=== PATIENT | male | born 1970 | race Caucasian/White ===

== ENCOUNTER 2020-10-26 12:30 | Emergency (ER) | payer OTHER ==
[~2020-10-26] VITALS: Ht 177.8 cm; Wt 102.4 kg
[2020-10-26 13:57] LABS: BASO # 0.1 x10^3/uL (0.0-0.2); BASO % 1 % (0-3); EOS # 0.1 x10^3/uL (0.0-0.7); EOS % 1 % (0-3); HEMATOCRIT 53.8 % (39.0-53.0); HEMOGLOBIN 18.3 g/dL (13.0-17.5); LYMPH # 2.4 x10^3/uL (1.0-4.8); LYMPH % 22 % (24-48); MEAN CORPUSCULAR HEMOGLOBIN 29 pg (25-35); MEAN CORPUSCULAR HGB CONC 34 g/dL (31-37); MEAN CORPUSCULAR VOLUME 85 fL (79-100); MONO # 0.7 x10^3/uL (0.0-1.1); MONO % 6 % (0-9); NEUT # 7.7 x10^3/uL (1.8-7.7); NEUT % 70 % (31-73); PLATELET COUNT 280 x10^3/uL (140-400); RED BLOOD COUNT 6.36 x10^6/uL (4.30-5.70); RED CELL DISTRIBUTION WIDTH 13.7 % (11.5-14.5); WHITE BLOOD COUNT 11.1 x10^3/uL (4.0-11.0)
[2020-10-26 14:10] LABS: CALCIUM 8.7 mg/dL (8.5-10.1); CREATININE 1.2 mg/dL (0.7-1.3); GFR 63.6; POTASSIUM 4.1 mmol/L (3.5-5.1)
[2020-10-26 14:14] VITALS: BP 160/110
[2020-10-26 14:16] LABS: ALBUMIN 3.4 g/dL (3.4-5.0); ALBUMIN/GLOBULIN RATIO 1.1 (1.0-1.7); MAGNESIUM 1.9 mg/dL (1.8-2.4); TOTAL BILIRUBIN 0.5 mg/dL (0.2-1.0); TOTAL PROTEIN 6.4 g/dL (6.4-8.2)
--- NOTE | 2020-10-26 14:44 | PHYS DOC ---
General Adult EDM: Chief Complaint: SHORTNESS OF BREATH HPI: HPI: Patient is a 50 year old male who was told to come to ER for evaluation of abnormal chest x-ray today. Patient said he has been having trouble breathing with exertion for the last 2 weeks. He denies any chest pain, no cough , no fever. Patient denies any abdominal pain, no headache, no neck pain. Patient is a history of diabetic hypertension, he was on medication for that few years back, did not like the medication so he stopped taking the medication, he has been doing diet and exercise to improve the diabetic condition and blood pressure. Patient went to see head doctor today who had ordered a chest x-ray. He had a chest x-ray done today and his doctor told him to come to ER for evaluation. Review of Systems: Review of Systems: Constitutional: Denies fever or chills. [] Eyes: Denies change in visual acuity. [] HENT: Denies nasal congestion or sore throat. [] Respiratory: Denies cough , positive for shortness of air with exertion. Cardiovascular: Denies chest pain or edema. [] GI: Denies abdominal pain, nausea, vomiting, bloody stools or diarrhea. [] : Denies dysuria. [] Musculoskeletal: Denies back pain or joint pain. [] Integument: Denies rash. [] Neurologic: Denies headache, focal weakness or sensory changes. [] Endocrine: Denies polyuria or polydipsia. [] Lymphatic: Denies swollen glands. [] Psychiatric: Denies depression or anxiety. [] Heart Score: C/O Chest Pain: N/A Risk Factors: Risk Factors: DM, Current or recent (<one month) smoker, HTN, HLP, family history of CAD, obesity. Risk Scores: Score 0 - 3: 2.5% MACE over next 6 weeks - Discharge Home Score 4 - 6: 20.3% MACE over next 6 weeks - Admit for Clinical Observation Score 7 - 10: 72.7% MACE over next 6 weeks - Early Invasive Strategies Allergies: Allergies: Allergies Coded Allergies Type Severity Reaction Last Updated Verified No Known Drug Allergies 10/26/20 No Physical Exam: PE: Constitutional: Well developed, well nourished, no acute distress, non-toxic appearance. [] HENT: Normocephalic, atraumatic, bilateral external ears normal, oropharynx moist, no oral exudates, nose normal. [] Eyes: PERRLA, EOMI, conjunctiva normal, no discharge. [] Neck: Normal range of motion, no tenderness, supple, no stridor. [] Cardiovascular:Heart rate regular rhythm, no murmur [] Lungs & Thorax: Bilateral breath sounds clear to auscultation [] Abdomen: Bowel sounds normal, soft, no tenderness, no masses, no pulsatile masses. [] Skin: Warm, dry, no erythema, no rash. [] Back: No tenderness, no CVA tenderness. [] Extremities: No tenderness, no cyanosis, no clubbing, ROM intact, pedal edema 1+ bilaterally Neurologic: Alert and oriented X 3, normal motor function, normal sensory function, no focal deficits noted. [] Psychologic: Affect normal, judgement normal, mood normal. [] Current Patient Data: Labs: Laboratory Tests Test 10/26/20 13:47 White Blood Count 11.1 x10^3/uL (4.0-11.0) H Red Blood Count 6.36 x10^6/uL (4.30-5.70) H Hemoglobin 18.3 g/dL (13.0-17.5) H Hematocrit 53.8 % (39.0-53.0) H Mean Corpuscular Volume 85 fL (79-100) Mean Corpuscular Hemoglobin 29 pg (25-35) Mean Corpuscular Hemoglobin Concent 34 g/dL (31-37) Red Cell Distribution Width 13.7 % (11.5-14.5) Platelet Count 280 x10^3/uL (140-400) Neutrophils (%) (Auto) 70 % (31-73) Lymphocytes (%) (Auto) 22 % (24-48) L Monocytes (%) (Auto) 6 % (0-9) Eosinophils (%) (Auto) 1 % (0-3) Basophils (%) (Auto) 1 % (0-3) Neutrophils # (Auto) 7.7 x10^3/uL (1.8-7.7) Lymphocytes # (Auto) 2.4 x10^3/uL (1.0-4.8) Monocytes # (Auto) 0.7 x10^3/uL (0.0-1.1) Eosinophils # (Auto) 0.1 x10^3/uL (0.0-0.7) Basophils # (Auto) 0.1 x10^3/uL (0.0-0.2) Sodium Level 140 mmol/L (136-145) Potassium Level 4.1 mmol/L (3.5-5.1) Chloride Level 103 mmol/L (98-107) Carbon Dioxide Level 28 mmol/L (21-32) Anion Gap 9 (6-14) Blood Urea Nitrogen 21 mg/dL (8-26) Creatinine 1.2 mg/dL (0.7-1.3) Estimated GFR (Cockcroft-Gault) 63.6 BUN/Creatinine Ratio 18 (6-20) Glucose Level 204 mg/dL (70-99) H Calcium Level 8.7 mg/dL (8.5-10.1) Magnesium Level 1.9 mg/dL (1.8-2.4) Total Bilirubin 0.5 mg/dL (0.2-1.0) Aspartate Amino Transferase (AST) 27 U/L (15-37) Alanine Aminotransferase (ALT) 51 U/L (16-63) Alkaline Phosphatase 103 U/L (46-116) Troponin I Quantitative 0.020 ng/mL (0.000-0.055) CW-Jvo-G-Type Natriuretic Peptide 1630 pg/mL (0-124) H Total Protein 6.4 g/dL (6.4-8.2) Albumin 3.4 g/dL (3.4-5.0) Albumin/Globulin Ratio 1.1 (1.0-1.7) Laboratory Tests 10/26/20 13:47 Laboratory Tests 10/26/20 13:47 EKG: EKG: EKG was done at 1341, heart rate of 96 bpm, sinus rhythm, no ST segment elevation, Radiology/Procedures: Radiology/Procedures: Chest x-ray was done today at diagnostic imaging center with the following impression by radiologist, there is moderate cardiac enlargement, perihilar pulmonary vascular congestion and small to moderate bilateral pleural effusions, most typical of congestive heart failure READ radiologist Dr. Kain Choudhary. Course & Med Decision Making: Course & Med Decision Making Pertinent Labs and Imaging studies reviewed. (See chart for details) Patient is a 50-year-old male who was evaluated in ER due to abnormal chest x- ray. Patient was found to have evidence of CHF. His blood sugar was elevated. This physician recommended patient be admitted to hospital for further evaluation and treatment, discussed with the cardiology FISHER CRAB Ju who will come to ER to see patient. However patient did not want to be admitted to hospital he want to go home, he will follow up with his doctor and have referred to an outpatient evaluation with cardiology. Patient signed out AGAINST MEDICAL ADVICE. Patient denies any chest pain, no abdominal pain, no nausea vomiting, no trouble breathing without discharge. Dragon Disclaimer: Dragon Disclaimer: This electronic medical record was generated, in whole or in part, using a voice recognition dictation system. Departure Departure Impression: Primary Impression: CHF (congestive heart failure) Additional Impressions: Hypertension Hyperglycemia Disposition: LEFT AGAINST MEDICAL ADVICE Condition: STABLE Referrals: UNKNOWN PCP NAME (PCP) QASIM CHANDRA MD please follow up with this support services specialist this week for outpatient evaluation since you did not want to be admitted to the hospital Patient Instructions: Discharge Against Medical Advice Additional Instructions: Thank you for visiting our Emergency Department. We appreciate you trusting us with your care. If any additional problems come up don't hesitate to return to visit us. Please follow up with your primary care provider so they can plan additional care if needed and know about the problem that you had. If symptoms worsen come back to the Emergency Department. Any concerning symptoms that start such as chest pain, shortness of air, weakness or numbness on one side of the body, running high fevers or any other concerning symptoms return to the ER. FRANK MARROQUIN DO Oct 26, 2020 14:44
--- NOTE | 2020-10-26 18:33 | EKG ---
[facility] [address] [place] [id number] Test Date: 2020-10-26 Test Time: 13:38:40 Pat Name: AMAN WHITMAN Department: Room: Gender: M [employer]: : [id number] Requested By: FRANK MARROQUIN Order Number: [id number] Reading MD: Measurements Intervals [place] Rate: 96 P: 26 AR: 134 QRS: 54 QRSD: 96 T: 36 QT: 356 QTc: 456 Interpretive Statements SINUS RHYTHM LEFT ATRIAL ABNORMALITY LOW LIMB LEAD VOLTAGE QRS(T) CONTOUR ABNORMALITY CONSISTENT WITH ANTEROSEPTAL INFARCT PROBABLY OLD ABNORMAL ECG RI6.02 No previous ECG available for comparison
== END 2020-10-26 15:23 | disposition left against medical advice (07) ==
LOC: ER 12:30
DX: I11.0 Hypertensive heart disease with heart failure (principal); I50.9 Heart failure, unspecified; R73.9 Hyperglycemia, unspecified
CPT/HCPCS: 36415; 80053; 83735; 83880; 84484; 85025; 93005; 99284